=== PATIENT | female | born 1995 | race Caucasian/White ===

== ENCOUNTER 2016-10-14 11:18 | Outpatient (CLI) | payer MEDICAID | END 2016-10-14 11:19 | disposition home or self-care (01) | DX: M10.9 Gout, unspecified (principal) ==

== ENCOUNTER 2016-12-05 12:32 | Outpatient (CLI) | payer MEDICAID ==
[2016-12-05 17:54] LABS: HCT - HEMATOCRIT 41.3 % (37.0-47.0); HGB - HEMOGLOBIN 13.9 g/dL (12.0-16.0); MEAN CORPUSCULAR HEMOGLOBIN 33.6 pg (27.0-31.0); MEAN CORPUSCULAR HGB CONC 33.7 g/dL (32.0-36.0); MEAN CORPUSCULAR VOLUME 99.7 fL (81.0-99.0); MEAN PLATELET VOLUME 8.6 fL (7.9-10.8); RED BLOOD COUNT 4.14 10^6/uL (4.20-5.40); RED CELL DISTRIBUTION WIDTH 13.6 % (12.0-15.0)
== END 2016-12-05 12:33 | disposition home or self-care (01) ==
LOC: LAB.F 12:32
PROVIDERS: ATTEND Internal Medicine Nephrology
DX: N25.81 Secondary hyperparathyroidism of renal origin (principal); R80.9 Proteinuria, unspecified
CPT/HCPCS: 36415; 82570; 83970; 84100; 84156

== ENCOUNTER 2018-05-08 10:56 | Outpatient (CLI) | payer MEDICAID ==
[2018-05-08 17:41] LABS: BILIRUBIN,URINE NEGATIVE (NEGATIVE); GLUCOSE, URINE (UA) NEGATIVE (NEGATIVE); KETONES,URINE (UA) NEGATIVE (NEGATIVE); LEUKOCYTE ESTERASE, URINE NEGATIVE (NEGATIVE); NITRITE,URINE NEGATIVE (NEGATIVE); OCCULT BLOOD,URINE NEGATIVE (NEGATIVE); PROTEIN,URINE NEGATIVE (NEGATIVE); UROBILINOGEN,URINE 0.2 (NORMAL) E.U./dL (NORMAL)
[2018-05-08 17:54] LABS: BACTERIA,URINE None Seen /HPF (None Seen); CLARITY,URINE CLEAR (CLEAR); RBC,URINE None Seen /HPF (0-5); SQUAMOUS EPITHELIAL CELL,UR MANY Squamous (<= Few)
== END 2018-05-08 10:57 | disposition home or self-care (01) ==
LOC: LAB.R 10:56
PROVIDERS: ATTEND Nurse Practitioner Family
DX: N12 Tubulo-interstitial nephritis, not specified as acute or chronic (principal)
CPT/HCPCS: 81001; 87086

== ENCOUNTER 2018-12-22 15:58 | Emergency (ER) | payer MEDICAID ==
--- NOTE | 2018-12-22 16:37 | ED Physician Documentation ---
History of Present Illness - Stated complaint Stated Complaint: SUDHIR/COUGH/SINUS - Chief complaint Chief Complaint: General - History obtained from History obtained from: Patient, Family (mom) - History of Present Illness Timing: Other (23-year-old woman with history of Down syndrome, chronic leukopenia and one kidney presents with a week's worth of sore throat, productive cough with yellow sputum and sinus pain as well as feeling warm per the mom. Of note the mom says that she has vital signs that are always similar to this, review of her chart shows that she always has a somewhat low blood pres sure which is typical for a young woman but her pulse is usually in the 60s and 70s.) Review of Systems Constitutional: reports: Fever Ears: denies: Ear pain Nose: reports: Rhinorrhea / runny nose, Congestion, Sinus pressure / pain Throat: reports: Sore throat Respiratory: reports: Cough. denies: Dyspnea GI: denies: Vomiting, Diarrhea PD PAST MEDICAL HISTORY - Past Medical History Cardiovascular: Other Respiratory: None Endocrine/Autoimmune: None GI: None : Other HEENT: None Psych: Other Musculoskeletal: Gout, Fatigue Derm: None - Past Surgical History Past Surgical History: Yes - Present Medications Home Medications: Ambulatory Orders Medication Instructions Recorded Confirmed Polyethylene Glycol 3350 [Miralax] 4 tsp PO DAILY 10/14/17 12/15/18 Allopurinol 1.5 tab PO DAILY 10/27/18 12/15/18 - Allergies Allergies/Adverse Reactions: Allergies Allergy/AdvReac Type Severity Reaction Status Date / Time No Known Drug Allergies Allergy Verified 12/15/18 13:43 - Social History Does the pt smoke?: No Smoking Status: Never smoker Does the pt drink ETOH?: No Does the pt have substance abuse?: No PD ED PE NORMAL - Vitals Vital signs reviewed: Yes - General General: Alert and oriented X 3 - HEENT HEENT: PERRL, EOMI, Other (Down's feces, left TM normal. Unable to visualize the right TM due to cerumen. Tender over both maxillary sinuses with profuse sinus drainage. Visualized portions of the oropharynx are normal.) - Neck Neck: Supple, no meningeal sign, No bony TTP - Cardiac Cardiac: RRR, No murmur - Respiratory Respiratory: No respiratory distress, Clear bilaterally - Abdomen Abdomen: Soft, Non tender - Derm Derm: Normal color, Warm and dry, No rash - Extremities Extremities: No edema, No calf tenderness / cord - Neuro Neuro: Normal speech Results - Vitals Vitals: Vital Signs - 24 hr 12/22/18 16:03 Temperature 37.6 C H Heart Rate 96 Respiratory 18 Rate Blood Pressure 85/56 L O2 Saturation 95 Oxygen O2 Source Room air - Labs Labs: Laboratory Tests 12/22/18 12/22/18 12/22/18 16:54 16:54 16:54 WBC 7.6 RBC 4.18 L Hgb 13.4 Hct 42.5 MCV 101.7 H MCH 32.1 H MCHC 31.5 L RDW 14.0 Plt Count 196 MPV 10.5 Neut # (Auto) 6.8 H Lymph # (Auto) 0.3 L [place] # (Auto) 0.3 Eos # (Auto) 0.0 Baso # (Auto) 0.0 Absolute Nucleated RBC 0.00 Nucleated RBC % 0.0 Sodium 138 Potassium 4.3 Chloride 101 Carbon Dioxide 23 Anion Gap 14.0 H BUN 34 H Creatinine 1.8 H Estimated GFR (MDRD) 35 L Glucose 100 Lactic Acid 0.9 Calcium 9.0 PD MEDICAL DECISION MAKING - ED course ED course: Given her history and tachycardia labs were done which show a reassuring lactate and she is treated for sinusitis with Augmentin. Departure - Departure Disposition: 01 Home, Self Care Clinical Impression: Sinusitis Qualifiers: Sinusitis location: maxillary Chronicity: acute Recurrence: non-recurrent Qualified Code(s): J01.00 - Acute maxillary sinusitis, unspecified Condition: Good Record reviewed to determine appropriate education?: Yes Health Concerns: Sinusitis, with underlying leukopenia with improvement today likely due to her body fighting the infection. No evidence of sepsis. Plan of Treatment: Augmentin for 10 days, can also use [id number] remedies such as Mucinex and Sudafed. Care Goals: Improvement of infection Instructions: ED Sinusitis Abx Tx Comments: Follow-up with your doctor in a week, return for new or worsening symptoms. Drink plenty of fluids.
[2018-12-22 17:04] LABS: BASOPHILS % (AUTO) 0.5 %; EOSINOPHILS % (AUTO) 0.5 %; HGB - HEMOGLOBIN 13.4 g/dL (12.0-16.0); LYMPHOCYTES # (AUTO) 0.3 10^3/uL (1.5-3.5); LYMPHOCYTES % (AUTO) 4.4 %; MEAN CORPUSCULAR HEMOGLOBIN 32.1 pg (27.0-31.0); MEAN CORPUSCULAR HGB CONC 31.5 g/dL (32.0-36.0); MEAN CORPUSCULAR VOLUME 101.7 fL (81.0-99.0); MEAN PLATELET VOLUME 10.5 fL (7.9-10.8); MONOCYTES # (AUTO) 0.3 10^3/uL (0.0-1.0); NEUTROPHILS # (AUTO) 6.8 10^3/uL (1.5-6.6); NEUTROPHILS % (AUTO) 89.9 %; PLT - PLATELET COUNT 196 10^3/uL (130-450); RED BLOOD COUNT 4.18 10^6/uL (4.20-5.40); WHITE BLOOD COUNT 7.6 x10^3/uL (4.8-10.8)
[2018-12-22 17:07] LABS: CREATININE 1.8 mg/dL (0.4-1.0)
[2018-12-22] MEDS ORDERED: AMOX/CLAV 875 MG/125 MG TABLET PO STA (17:34)
[2018-12-22 17:51] VITALS: BP 84/54
== END 2018-12-22 17:55 | disposition home or self-care (01) ==
LOC: ED 15:58
DX: J01.00 Acute maxillary sinusitis, unspecified (principal)
CPT/HCPCS: 36415; 80048; 83605; 85025; 99283; A9270

== ENCOUNTER 2019-10-07 15:09 | Outpatient (CLI) | payer MEDICAID ==
[2019-10-07 16:28] LABS: BASOPHILS % (AUTO) 1.5 %; EOSINOPHILS % (AUTO) 1.1 %; HGB - HEMOGLOBIN 11.6 g/dL (12.0-16.0); LYMPHOCYTES % (AUTO) 28.9 %; MEAN CORPUSCULAR HEMOGLOBIN 32.7 pg (27.0-31.0); MEAN CORPUSCULAR HGB CONC 31.8 g/dL (32.0-36.0); MEAN CORPUSCULAR VOLUME 102.8 fL (81.0-99.0); MEAN PLATELET VOLUME 10.8 fL (7.9-10.8); MONOCYTES % (AUTO) 5.7 %; NEUTROPHILS % (AUTO) 62.4 %; PLT - PLATELET COUNT 240 10^3/uL (130-450); RED BLOOD COUNT 3.55 10^6/uL (4.20-5.40); RED CELL DISTRIBUTION WIDTH 15.3 % (12.0-15.0); WHITE BLOOD COUNT 2.6 x10^3/uL (4.8-10.8)
[2019-10-07 16:33] LABS: ABNORMAL LYMPHS % (MANUAL) 0 %
[2019-10-07 16:47] LABS: ALBUMIN/GLOBULIN RATIO 1.1 (1.0-2.2); BILIRUBIN,TOTAL 1.1 mg/dL (0.2-1.0); CALCIUM 9.6 mg/dL (8.5-10.3); CREATININE 1.5 mg/dL (0.4-1.0); TOTAL PROTEIN 7.6 g/dL (6.7-8.2)
[2019-10-07 16:51] LABS: BAND NEUTROPHILS % (MANUAL) 2 %; DIFFERENTIAL COMMENT MANUAL DIFFERENTIAL; LYMPHOCYTES # (MANUAL) 0.5 10^3/uL (1.5-3.5); LYMPHOCYTES % (MANUAL) 19 %; MONOCYTES # (MANUAL) 0.2 10^3/uL (0.0-1.0); PLATELET ESTIMATE, MANUAL NORMAL (130-450,000) (NORMAL); PLATELET MORPHOLOGY NORMAL APPEARANCE (NORMAL)
== END 2019-10-07 23:59 | disposition home or self-care (01) ==
LOC: LAB.WCP 15:09
PROVIDERS: ATTEND Registered Nurse
DX: N13.30 Unspecified hydronephrosis (principal); Z90.5 Acquired absence of kidney
CPT/HCPCS: 36415; 80053; 85025

== ENCOUNTER 2019-10-21 08:00 | Outpatient (CLI) | payer MEDICAID | END 2019-10-21 23:59 | disposition home or self-care (01) | LOC: LAB.R 08:00 | PROVIDERS: ATTEND Family Medicine | DX: N39.0 Urinary tract infection, site not specified (principal) | CPT/HCPCS: 87077; 87086; 87181 ==

== ENCOUNTER 2019-10-26 16:02 | Outpatient (CLI) | payer MEDICAID ==
--- NOTE | 2019-10-27 05:50 | Ultrasound Report ---
Reason: HYDRONEPHROSIS Procedure Date: 10/26/2019 Accession Number: [id number] / [id number] Procedure: US - Retroperitoneal CPT Code: Final Report FULL RESULT: EXAM: RENAL ULTRASOUND EXAM DATE: 10/26/2019 05:39 PM. CLINICAL HISTORY: HYDRONEPHROSIS. COMPARISON: ABDOMEN/PELVIS W/O 04/17/2014 4:18 PM. TECHNIQUE: Real-time scanning was performed with static images obtained. FINDINGS: Right Kidney: Status post right nephrectomy. Left Kidney: 11.9 x 8.1 x 9.7 cm. Moderate hydronephrosis without change post void. No mass or calculi evident. Bladder: Left ureteral jet seen. Mild lateral wall thickening. The prevoid bladder volume was 245 cc. The postvoid bladder volume was 24.6 cc. Other: None. IMPRESSION: 1. Moderate left hydronephrosis. 2. Right nephrectomy. 3. Mild bladder wall thickening. Correlate with urinalysis to exclude cystitis. 4. Small postvoid residual measuring 24.6 cc. RADIA
--- NOTE | 2019-10-27 05:57 | Ultrasound Report ---
Reason: HX OF OVARIAN CYST Procedure Date: 10/26/2019 Accession Number: [id number] / [id number] Procedure: US - Pelvic w/Transvaginal CPT Code: Final Report FULL RESULT: EXAM: PELVIC ULTRASOUND EXAM DATE: 10/26/2019 04:36 PM. CLINICAL HISTORY: History of ovarian cyst. Right ovary remains. Status post recent hysterectomy and left oophorectomy. COMPARISON: CT ABDOMEN/PELVIS W/O 04/17/2014 4:18 PM. TECHNIQUE: Realtime transabdominal pelvic scan performed to identify the uterus and adnexa with static image documentation. FINDINGS: Uterus: Status post hysterectomy. Right Ovary: Right ovary measures 3.2 x 1.9 x 3.5 cm, volume 10.7 cc. Right ovary contains a heterogeneous cystic structure measuring 2.3 x 1.3 x 1.6 cm, possibly involuting corpus luteum cyst or hemorrhagic cyst. No evidence of ovarian torsion. Left Ovary: Status post left oophorectomy. Free Fluid: None. Other: None. IMPRESSION: 1. Heterogeneous ovarian cyst measuring 2.3 cm, possibly involuting corpus luteum cyst or hemorrhagic cyst. Follow-up ultrasound in 6-10 weeks can be performed to ensure resolution. 2. Status post hysterectomy and left oophorectomy. 3. No free fluid. RADIA
== END 2019-10-26 16:03 | disposition home or self-care (01) ==
LOC: DI 16:02
PROVIDERS: ATTEND Family Medicine
DX: N13.30 Unspecified hydronephrosis (principal); N32.89 Other specified disorders of bladder; N83.201 Unspecified ovarian cyst, right side; Z90.5 Acquired absence of kidney; Z90.710 Acquired absence of both cervix and uterus; Z90.721 Acquired absence of ovaries, unilateral
CPT/HCPCS: 76770; 76830; 76856

== ENCOUNTER 2019-12-28 05:18 | Emergency (ER) | payer MEDICAID ==
--- NOTE | 2019-12-28 05:35 | ED Physician Documentation ---
<Sean Jain - Last Filed: 12/28/19 18:52> PD HPI FEMALE - Stated complaint Stated Complaint: BACK PX/FEM - Chief complaint Chief Complaint: Back Pain PD PAST MEDICAL HISTORY - Past Medical History Neuro: Other (Down Syndrome) : Other (frequent infections, right nephrectomy reflux with stent in place on left) - Past Surgical History General: Other (nephrectomy) - Present Medications Home Medications: Ambulatory Orders Medication Instructions Recorded Confirmed Polyethylene Glycol 3350 [Miralax] 4 tsp PO DAILY 10/14/17 12/28/19 allopurinoL [Allopurinol] 1.5 tab PO DAILY 10/27/18 12/28/19 Cefdinir 300 mg PO BID #14 capsule 12/28/19 Ondansetron Odt [Zofran] 4 mg TL Q6H PRN #10 tablet 12/28/19 - Allergies Allergies/Adverse Reactions: Allergies Allergy/AdvReac Type Severity Reaction Status Date / Time Sulfa (Sulfonamide AdvReac Unknown Verified 12/28/19 05:39 Antibiotics) - Living Situation Living Situation: reports: With family Living Arrangement: reports: At home - Family History Family history: reports: Non contributory PD ED PE NORMAL - Vitals Vital signs reviewed: Yes (febrile tachy and with low blood pressure ) - General General: No acute distress, Well developed/nourished - HEENT HEENT: Atraumatic, PERRL, EOMI, Dentition benign, Other (dry mucous membranes ) - Neck Neck: Supple, no meningeal sign - Cardiac Cardiac: RRR, Other (1/6 holosystolic murmer at LSB) - Respiratory Respiratory: No respiratory distress, Clear bilaterally - Abdomen Abdomen: Soft, Non distended, Other (mild left upper quadrant tenderness to bimanual palpation of the left kidney) - Back Back: No spinal TTP, Other (left CVA tenderness is mild without garding but with reported tenderness. ) - Derm Derm: Normal color, Warm and dry, No rash - Extremities Extremities: No deformity, No edema, No calf tenderness / cord - Neuro Neuro: heel cover splitter 2-12 intact, No motor deficit, No sensory deficit, Normal speech Eye Opening: Spontaneous Motor: Obeys Commands Verbal: Oriented GCS Score: 15 - Psych Psych: Normal mood, Normal affect PD MEDICAL DECISION MAKING - ED course Complexity details: reviewed old records, reviewed results, re-evaluated patient, considered differential, d/w patient, d/w family, d/w pre owned sales consultant (The case was discussed with the patient's urologist Dr. Be and she agrees with current management and she will follow up. ) ED course: 24-year-old female with trisomy 21 Down syndrome and frequent urinary tract infections has had a recent stent placed in the left ureter she has a history of frequent urinary tract infections and Imtiaz. She has been complaining of pain beginning yesterday afternoon and her sister indicates that when she begins to cry and be in pain this is usually the issue. The patient herself indicates that her left kidney is painful. She has had some nausea and vomiting associated with this and a fever. Urinalysis is remarkable for some trace leukocyte Estrace. The urinalysis does make grade for culture. She is administered IV rocephin and we will place her on cefdinir. Tylenol for fever and pain and zofran for nausea. Departure - Departure Disposition: 01 Home, Self Care Clinical Impression: UTI (urinary tract infection) Qualifiers: Urinary tract infection type: acute pyelonephritis Qualified Code(s): N10 - Acute pyelonephritis Condition: Stable Instructions: ED Kidney Infec Female Follow-Up: Javon Adams DO [Primary Care Provider] - Prescriptions: Cefdinir 300 mg PO BID #14 capsule Ondansetron Odt [Zofran] 4 mg TL Q6H PRN #10 tablet PRN Reason: Nausea / Vomiting Discharge Date/Time: 12/28/19 10:01 <Forrest Tran - Last Filed: 12/29/19 19:45> PD HPI FEMALE - History obtained from History obtained from: Patient, Family (sister (in ED at bedside)) - History of Present Illness Timing - onset: Yesterday Timing - details: Gradual onset Associated symptoms: Fever (in ED but patient/family were not aware of any fevers at home) 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 Per patient's sister, patient has been "crying a lot all day" during the day yesterday, which tends to correlate with patient having pain/discomfort. Patient has had episodic vomiting since yesterday. Patient's sister says patient has had recurrent "kidney infections" including recently, but unsure when patient was most recently on an antibiotic. Patient has had right nephrectomy (does not know reason but sounds like this was a distant surgery). Sister says patient had left ureteral stent placed recently (within past several weeks/possibly few months ago). Review of Systems Constitutional: reports: Fever PD PAST MEDICAL HISTORY - Past Medical History Cardiovascular: Other Respiratory: None Neuro: None Endocrine/Autoimmune: None GI: None CASTING ASSOCIATE: None : Other HEENT: None Psych: Other Musculoskeletal: Gout, Fatigue Derm: None - Past Surgical History Past Surgical History: Yes - Social History Does the pt smoke?: No Smoking Status: Never smoker Does the pt drink ETOH?: No Does the pt have substance abuse?: No - Immunizations Immunizations are current?: Yes - POLST Patient has POLST: No PD ED PE NORMAL - Vitals Vital signs reviewed: Yes - General General: No acute distress, Well developed/nourished - HEENT HEENT: Pharynx benign, Other (tacky/pasty mucous membranes) - Neck Neck: Supple, no meningeal sign - Cardiac Cardiac: RRR, No murmur - Respiratory Respiratory: No respiratory distress, Clear bilaterally - Abdomen Abdomen: Soft, Non tender, Non distended - Back Back: No CVA TTP - Derm Derm: Normal color, Warm and dry Results - Vitals Vitals: Oxygen O2 Source Room air - Labs Labs: Microbiology 12/28/19 06:10 Urine Culture - Preliminary Urine,Clean Catch Laboratory Tests 12/28/19 12/28/19 12/28/19 06:00 06:00 06:00 WBC 6.1 RBC 3.38 L Hgb 11.1 L Hct 33.9 L MCV 100.3 H MCH 32.8 H MCHC 32.7 RDW 14.2 Plt Count 97 L MPV 10.5 Neut # (Auto) 5.5 Lymph # (Auto) 0.2 L [place] # (Auto) 0.3 Eos # (Auto) 0.0 Baso # (Auto) 0.0 Absolute Nucleated RBC 0.00 Nucleated RBC % 0.0 Sodium 137 Potassium 4.8 Chloride 104 Carbon Dioxide 25 Anion Gap 8.0 BUN 46 H Creatinine 2.0 H Estimated GFR (MDRD) 30 L Glucose 100 Lactic Acid 0.9 Calcium 8.8 Total Bilirubin 0.6 AST 12 ALT 11 Alkaline Phosphatase 44 Total Protein 6.4 L Albumin 3.6 Globulin 2.8 Albumin/Globulin Ratio 1.3 Lipase 22 Urine Color Urine Clarity Urine pH Ur Specific [place] Urine Protein Urine Glucose (UA) Urine Ketones Urine Occult Blood Urine Nitrite Urine Bilirubin Urine Urobilinogen Ur Leukocyte Esterase Urine RBC Urine WBC Ur Squamous Epith Cells Urine Bacteria Ur Microscopic Review Urine Culture Comments 12/28/19 06:10 WBC RBC Hgb Hct MCV MCH MCHC RDW Plt Count MPV Neut # (Auto) Lymph # (Auto) [place] # (Auto) Eos # (Auto) Baso # (Auto) Absolute Nucleated RBC Nucleated RBC % Sodium Potassium Chloride Carbon Dioxide Anion Gap BUN Creatinine Estimated GFR (MDRD) Glucose Lactic Acid Calcium Total Bilirubin AST ALT Alkaline Phosphatase Total Protein Albumin Globulin Albumin/Globulin Ratio Lipase Urine Color YELLOW Urine Clarity CLEAR Urine pH 6.0 Ur Specific [place] 1.015 Urine Protein 100 H Urine Glucose (UA) NEGATIVE Urine Ketones NEGATIVE Urine Occult Blood MODERATE H Urine Nitrite NEGATIVE Urine Bilirubin NEGATIVE Urine Urobilinogen 0.2 (NORMAL) Ur Leukocyte Esterase TRACE H Urine RBC 6-10 H Urine WBC 4-5 Ur Squamous Epith Cells FEW Squamous Urine Bacteria Few Ur Microscopic Review INDICATED Urine Culture Comments INDICATED PD MEDICAL DECISION MAKING - ED course Complexity details: reviewed old records (charts from [facility] / [facility] faxed and reviewed, indicate left ureteral stent placement 12/06/2019), considered differential, d/w patient, d/w family
[2019-12-28] MEDS ORDERED: SODIUM CHLORIDE 0.9% 1,000 ML IV STA (05:55)
[2019-12-28] MEDS ORDERED: MORPHINE 2 MG/ML CARPUJECT IVP STA (05:55)
[2019-12-28] MEDS ORDERED: ACETAMINOPHEN 325 MG TABLET PO STA (05:55)
[2019-12-28] MEDS ORDERED: ONDANSETRON 4 MG/2 ML VIAL ONE (06:09)
[2019-12-28] MEDS ORDERED: ONDANSETRON 4 MG/2 ML VIAL IVP STA (06:10)
[2019-12-28 06:17] LABS: BASOPHILS % (AUTO) 0.5 %; EOSINOPHILS % (AUTO) 0.3 %; HGB - HEMOGLOBIN 11.1 g/dL (12.0-16.0); LYMPHOCYTES # (AUTO) 0.2 10^3/uL (1.5-3.5); LYMPHOCYTES % (AUTO) 3.3 %; MEAN CORPUSCULAR HEMOGLOBIN 32.8 pg (27.0-31.0); MEAN CORPUSCULAR HGB CONC 32.7 g/dL (32.0-36.0); MEAN CORPUSCULAR VOLUME 100.3 fL (81.0-99.0); MEAN PLATELET VOLUME 10.5 fL (7.9-10.8); MONOCYTES # (AUTO) 0.3 10^3/uL (0.0-1.0); MONOCYTES % (AUTO) 4.5 %; NEUTROPHILS # (AUTO) 5.5 10^3/uL (1.5-6.6); NEUTROPHILS % (AUTO) 91.1 %; PLT - PLATELET COUNT 97 10^3/uL (130-450); RED BLOOD COUNT 3.38 10^6/uL (4.20-5.40); RED CELL DISTRIBUTION WIDTH 14.2 % (12.0-15.0); WHITE BLOOD COUNT 6.1 x10^3/uL (4.8-10.8)
[2019-12-28 06:31] LABS: ALBUMIN 3.6 g/dL (3.2-5.5); ALBUMIN/GLOBULIN RATIO 1.3 (1.0-2.2); BILIRUBIN,TOTAL 0.6 mg/dL (0.2-1.0); CALCIUM 8.8 mg/dL (8.5-10.3); TOTAL PROTEIN 6.4 g/dL (6.7-8.2)
[2019-12-28 07:20] LABS: BILIRUBIN,URINE NEGATIVE (NEGATIVE); GLUCOSE, URINE (UA) NEGATIVE (NEGATIVE); KETONES,URINE (UA) NEGATIVE (NEGATIVE); LEUKOCYTE ESTERASE, URINE TRACE (NEGATIVE); NITRITE,URINE NEGATIVE (NEGATIVE); OCCULT BLOOD,URINE MODERATE (NEGATIVE); PROTEIN,URINE 100 mg/dL (NEGATIVE); UROBILINOGEN,URINE 0.2 (NORMAL) E.U./dL (NORMAL)
[2019-12-28 07:29] LABS: CLARITY,URINE CLEAR (CLEAR)
[2019-12-28 07:41] LABS: BACTERIA,URINE Few /HPF (None Seen); SQUAMOUS EPITHELIAL CELL,UR FEW Squamous (<= Few)
[2019-12-28] MEDS ORDERED: cefTRIAXone 1 GM in SODIUM CHLORIDE 0.9% MINIBAG 100 ML IV STA (08:13)
[2019-12-28 10:01] VITALS: BP 102/60
== END 2019-12-28 10:01 | disposition home or self-care (01) ==
LOC: ED 05:18
DX: N10 Acute pyelonephritis (principal); R11.2 Nausea with vomiting, unspecified; Q90.9 Down syndrome, unspecified; R01.1 Cardiac murmur, unspecified; Z90.5 Acquired absence of kidney; Z96.0 Presence of urogenital implants
CPT/HCPCS: 36415; 80053; 81001; 83605; 83690; 85025; 87077; 87086; 87181; 96361; 96365; 96375; 99283; 99284; A9270; 81003

== ENCOUNTER 2019-12-30 22:39 | Emergency (ER) | payer MEDICAID ==
[2019-12-30 22:50] VITALS: BP 105/58
== END 2019-12-31 00:17 | disposition left against medical advice (07) ==
LOC: ED 22:39
DX: Z53.21 Procedure and treatment not carried out due to patient leaving prior to being seen by health care provider (principal)

== ENCOUNTER 2020-02-07 10:29 | Outpatient (CLI) | payer MEDICAID ==
[2020-02-07 16:01] LABS: CALCIUM 9.5 mg/dL (8.5-10.3); PHOSPHORUS 5.2 mg/dL (2.5-4.6)
== END 2020-02-07 10:30 | disposition home or self-care (01) ==
LOC: LAB.S 10:29
PROVIDERS: ATTEND Internal Medicine Nephrology
DX: N39.0 Urinary tract infection, site not specified (principal); N13.30 Unspecified hydronephrosis; N18.3 Chronic kidney disease, stage 3 (moderate)
CPT/HCPCS: 36415; 80069

== ENCOUNTER 2020-03-01 07:54 | Outpatient (CLI) | payer MEDICAID | END 2020-03-01 07:55 | disposition short-term general hospital (02) | LOC: EMS 07:54 | PROVIDERS: ATTEND Surgery | DX: R55 Syncope and collapse (principal) | CPT/HCPCS: A0425; A0427 ==

== ENCOUNTER 2020-03-09 08:00 | Outpatient (CLI) | payer MEDICAID ==
[2020-03-09 20:34] LABS: BASOPHILS % (AUTO) 0.8 %; EOSINOPHILS # (AUTO) 0.1 10^3/uL (0.0-0.7); EOSINOPHILS % (AUTO) 2.5 %; LYMPHOCYTES # (AUTO) 0.8 10^3/uL (1.5-3.5); LYMPHOCYTES % (AUTO) 22.3 %; MEAN CORPUSCULAR HEMOGLOBIN 34.2 pg (27.0-31.0); MEAN CORPUSCULAR HGB CONC 33.1 g/dL (32.0-36.0); MEAN CORPUSCULAR VOLUME 103.1 fL (81.0-99.0); MEAN PLATELET VOLUME 11.5 fL (7.9-10.8); MONOCYTES # (AUTO) 0.2 10^3/uL (0.0-1.0); MONOCYTES % (AUTO) 6.2 %; NEUTROPHILS # (AUTO) 2.4 10^3/uL (1.5-6.6); NEUTROPHILS % (AUTO) 67.6 %; PLT - PLATELET COUNT 223 10^3/uL (130-450); RED BLOOD COUNT 3.22 10^6/uL (4.20-5.40); RED CELL DISTRIBUTION WIDTH 15.2 % (12.0-15.0); WHITE BLOOD COUNT 3.5 x10^3/uL (4.8-10.8)
[2020-03-09 20:42] LABS: CREATININE 1.8 mg/dL (0.4-1.0)
== END 2020-03-09 23:59 | disposition home or self-care (01) ==
LOC: LAB.R 08:00
PROVIDERS: ATTEND Internal Medicine
DX: N39.0 Urinary tract infection, site not specified (principal)
CPT/HCPCS: 80048; 85025

== ENCOUNTER 2020-06-05 07:00 | Outpatient (CLI) | payer MEDICAID ==
[2020-06-05 20:21] LABS: BILIRUBIN,URINE NEGATIVE (NEGATIVE); GLUCOSE, URINE (UA) NEGATIVE (NEGATIVE); KETONES,URINE (UA) NEGATIVE (NEGATIVE); LEUKOCYTE ESTERASE, URINE SMALL (NEGATIVE); NITRITE,URINE POSITIVE (NEGATIVE); OCCULT BLOOD,URINE NEGATIVE (NEGATIVE); PH,URINE 8.5 PH (5.0-7.5); PROTEIN,URINE NEGATIVE (NEGATIVE); UROBILINOGEN,URINE 0.2 (NORMAL) E.U./dL (NORMAL)
[2020-06-05 20:33] LABS: CLARITY,URINE HAZY (CLEAR)
[2020-06-05 20:34] LABS: AMORPHOUS SEDIMENT,UR Rare /LPF; BACTERIA,URINE Few /HPF (None Seen); RBC,URINE None Seen /HPF (0-5); SQUAMOUS EPITHELIAL CELL,UR RARE Squamous (<= Few)
== END 2020-06-05 23:59 | disposition home or self-care (01) ==
LOC: LAB 07:00
PROVIDERS: ATTEND Registered Nurse
DX: N39.0 Urinary tract infection, site not specified (principal)
CPT/HCPCS: 81001; 81003; 87077; 87086; 87181

== ENCOUNTER 2021-01-02 14:19 | Outpatient (CLI) | payer MEDICAID ==
[2021-01-02 17:29] LABS: CALCIUM 9.2 mg/dL (8.5-10.3); CREATININE 2.2 mg/dL (0.4-1.0); POTASSIUM 4.3 mmol/L (3.5-5.0)
== END 2021-01-02 14:20 | disposition home or self-care (01) ==
LOC: LAB.S 14:19
DX: N13.30 Unspecified hydronephrosis (principal)
CPT/HCPCS: 36415; 80048

== ENCOUNTER 2021-01-05 14:25 | Outpatient (CLI) | payer MEDICAID ==
[2021-01-05 14:28] LABS: BILIRUBIN,URINE NEGATIVE (NEGATIVE); GLUCOSE, URINE (UA) NEGATIVE (NEGATIVE); KETONES,URINE (UA) NEGATIVE (NEGATIVE); LEUKOCYTE ESTERASE, URINE NEGATIVE (NEGATIVE); NITRITE,URINE NEGATIVE (NEGATIVE); OCCULT BLOOD,URINE NEGATIVE (NEGATIVE); PROTEIN,URINE NEGATIVE (NEGATIVE); UROBILINOGEN,URINE 0.2 (NORMAL) E.U./dL (NORMAL)
[2021-01-05 14:38] LABS: BACTERIA,URINE None Seen /HPF (None Seen); CLARITY,URINE CLEAR (CLEAR); RBC,URINE 0-5 /HPF (0-5); SQUAMOUS EPITHELIAL CELL,UR RARE Squamous (<= Few); WBC,URINE 0-3 /HPF (0-5)
== END 2021-01-05 14:26 | disposition home or self-care (01) ==
LOC: LAB.S 14:25
PROVIDERS: ATTEND Registered Nurse
DX: N39.0 Urinary tract infection, site not specified (principal)
CPT/HCPCS: 81001; 87086

== ENCOUNTER 2023-06-22 02:47 | Emergency (ER) | payer MEDICARE, MEDICAID ==
[2023-06-22 04:10] LABS: BASOPHILS % (AUTO) 0.4 %; HCT - HEMATOCRIT 35.6 % (37.0-47.0); HGB - HEMOGLOBIN 11.9 g/dL (12.0-16.0); LYMPHOCYTES # (AUTO) 0.3 10^3/uL (1.5-3.5); LYMPHOCYTES % (AUTO) 3.5 %; MEAN CORPUSCULAR HEMOGLOBIN 33.5 pg (27.0-31.0); MEAN CORPUSCULAR HGB CONC 33.4 g/dL (32.0-36.0); MEAN CORPUSCULAR VOLUME 100.3 fL (81.0-99.0); MEAN PLATELET VOLUME 9.7 fL (7.9-10.8); MONOCYTES # (AUTO) 0.2 10^3/uL (0.0-1.0); MONOCYTES % (AUTO) 3.1 %; NEUTROPHILS # (AUTO) 6.8 10^3/uL (1.5-6.6); NEUTROPHILS % (AUTO) 92.9 %; PLT - PLATELET COUNT 119 10^3/uL (130-450); RED BLOOD COUNT 3.55 10^6/uL (4.20-5.40); RED CELL DISTRIBUTION WIDTH 14.2 % (12.0-15.0); WHITE BLOOD COUNT 7.3 x10^3/uL (4.8-10.8)
[2023-06-22 04:57] LABS: ALBUMIN 4.1 g/dL (3.2-5.5); ALBUMIN/GLOBULIN RATIO 1.4 (1.0-2.2); BILIRUBIN,TOTAL 0.4 mg/dL (0.2-1.0); CALCIUM 9.4 mg/dL (8.5-10.3); CREATININE 2.5 mg/dL (0.6-1.3); POTASSIUM 4.2 mmol/L (3.5-4.5)
--- NOTE | 2023-06-22 05:00 | ED Physician Documentation ---
History of Present Illness - Stated complaint Stated Complaint: VOMITING/FEVER - Chief complaint Chief Complaint: General - History obtained from History obtained from: Family - Additonal information Additional information: Patient's PMHx includes Downs Syndrome, solitary kidney. HPI from parents who are in ED at patient's bedside. Chief concern is fever to a Tmax of 101.5 with vomiting since approximately 1:30 AM this morning. They did not administer any medications for fever due to the vomiting. Parents say the patient has also been complaining of back pain but has had this pain since having ureteral stent placed approximately 3 months ago. Parents say that 3 months ago, patient had surgery (in [place]) to relieve obstruction of the left kidney with placement of left-sided ureteral stent placed along with a Sanchez catheter. Sanchez catheter has since been removed, but the stent has been removed and then replaced twice due to worsening creatinine subsequent to stent removal. Review of Systems Constitutional: reports: Fever Respiratory: denies: Dyspnea, Cough GI: reports: Vomiting. denies: Abdominal Pain Skin: denies: Rash Musculoskeletal: reports: Back pain PD PAST MEDICAL HISTORY - Past Medical History Past Medical History: Yes Cardiovascular: Other Respiratory: None Neuro: None Endocrine/Autoimmune: None GI: None HAND SCRAPER: None : Renal insuffiency, Other HEENT: None Psych: Other Musculoskeletal: Gout, Fatigue Derm: None - Past Surgical History Past Surgical History: Yes General: Other /HAND SCRAPER: Other - Present Medications Home Medications: Ambulatory Orders Medication Instructions Recorded Confirmed Polyethylene Glycol 3350 [Miralax] 4 tsp PO DAILY 10/14/17 12/28/19 allopurinoL [Allopurinol] 1.5 tab PO DAILY 10/27/18 12/28/19 Cefdinir 300 mg PO BID #14 capsule 12/28/19 Ondansetron Odt [Zofran] 4 mg TL Q6H PRN #10 tablet 12/28/19 - Allergies Allergies/Adverse Reactions: Allergies Allergy/AdvReac Type Severity Reaction Status Date / Time Sulfa (Sulfonamide AdvReac Unknown Verified 06/22/23 03:03 Antibiotics) - Social History Does the pt smoke?: No Smoking Status: Never smoker Does the pt drink ETOH?: No Does the pt have substance abuse?: No - Immunizations Immunizations are current?: Yes - POLST Patient has POLST: No PD ED PE NORMAL - Vitals Vital signs reviewed: Yes - General General: No acute distress, Well developed/nourished, Other (sleeping, awakens to verbal with gentle tactile) - Neck Neck: Supple, no meningeal sign - Cardiac Cardiac: RRR - Respiratory Respiratory: No respiratory distress, Clear bilaterally - Abdomen Abdomen: Normal bowel sounds, Soft, Non tender, Non distended - Derm Derm: Normal color, Warm and dry PD ED PE EXPANDED - Cardiac Cardiac: Murmur Present (2/6 JENNI left 2nd ICS), S4 Results - Vitals Vitals: Vital Signs - 24 hr 06/22/23 06/22/23 06/22/23 02:56 03:03 05:56 Temperature 37.5 C 37.5 C 37.3 C Heart Rate 95 95 84 Respiratory 16 16 17 Rate Blood Pressure 117/58 L 117/58 L 101/50 L O2 Saturation 98 98 93 06/22/23 07:00 Temperature Heart Rate 84 Respiratory 15 Rate Blood Pressure 98/52 L O2 Saturation 96 Oxygen O2 Source Room air - Labs Labs: Laboratory Tests 06/22/23 06/22/23 06/22/23 04:00 04:00 04:19 WBC 7.3 RBC 3.55 L Hgb 11.9 L Hct 35.6 L MCV 100.3 H MCH 33.5 H MCHC 33.4 RDW 14.2 Plt Count 119 L MPV 9.7 Neut # (Auto) 6.8 H Lymph # (Auto) 0.3 L [place] # (Auto) 0.2 Eos # (Auto) 0.0 Baso # (Auto) 0.0 Absolute Nucleated RBC 0.00 Nucleated RBC % 0.0 Sodium 138 Potassium 4.2 Chloride 104 Carbon Dioxide 24 Anion Gap 10.0 BUN 63 H Creatinine 2.5 H Estimated GFR (MDRD) 23 L Glucose 125 H Calcium 9.4 Total Bilirubin 0.4 AST 13 ALT 10 Alkaline Phosphatase 41 L Total Protein 7.0 Albumin 4.1 Globulin 2.9 Albumin/Globulin Ratio 1.4 Lipase 16 Urine Color YELLOW Urine Clarity CLEAR Urine pH 6.0 Ur Specific [place] 1.010 Urine Protein TRACE Urine Glucose (UA) NEGATIVE Urine Ketones NEGATIVE Urine Occult Blood MODERATE H Urine Nitrite NEGATIVE Urine Bilirubin NEGATIVE Urine Urobilinogen 0.2 (NORMAL) Ur Leukocyte Esterase MODERATE H Urine RBC 11-25 H Urine WBC 11-25 H Ur Squamous Epith Cells MANY Squamous H Urine Bacteria Moderate H Ur Microscopic Review INDICATED Urine Culture Comments NOT INDICATED Urine HCG, Qual NEGATIVE Nasal Adenovirus (PCR) Nasal B. parapertussis DNA (PCR) Nasal Coronavir 229E PCR Nasal Coronavir HKU1 PCR Nasal Coronavir NL63 PCR Nasal Coronavir OC43 PCR Nasal Enterovir/Rhinovir PCR Nasal Influenza B PCR Nasal Influenza A PCR Nasal Parainfluen 1 PCR Nasal Parainfluen 2 PCR Nasal Parainfluen 3 PCR Nasal Parainfluen 4 PCR Nasal RSV (PCR) Nasal B.pertussis DNA PCR Nasal C.pneumoniae (PCR) [place] Human Metapneumo PCR Nasal M.pneumoniae (PCR) Nasal SARS-CoV-2 (PCR) 06/22/23 05:36 WBC RBC Hgb Hct MCV MCH MCHC RDW Plt Count MPV Neut # (Auto) Lymph # (Auto) [place] # (Auto) Eos # (Auto) Baso # (Auto) Absolute Nucleated RBC Nucleated RBC % Sodium Potassium Chloride Carbon Dioxide Anion Gap BUN Creatinine Estimated GFR (MDRD) Glucose Calcium Total Bilirubin AST ALT Alkaline Phosphatase Total Protein Albumin Globulin Albumin/Globulin Ratio Lipase Urine Color Urine Clarity Urine pH Ur Specific [place] Urine Protein Urine Glucose (UA) Urine Ketones Urine Occult Blood Urine Nitrite Urine Bilirubin Urine Urobilinogen Ur Leukocyte Esterase Urine RBC Urine WBC Ur Squamous Epith Cells Urine Bacteria Ur Microscopic Review Urine Culture Comments Urine HCG, Qual Nasal Adenovirus (PCR) NOT DETECTED Nasal B. parapertussis DNA (PCR) NOT DETECTED Nasal Coronavir 229E PCR NOT DETECTED Nasal Coronavir HKU1 PCR NOT DETECTED Nasal Coronavir NL63 PCR NOT DETECTED Nasal Coronavir OC43 PCR NOT DETECTED Nasal Enterovir/Rhinovir PCR NOT DETECTED Nasal Influenza B PCR NOT DETECTED Nasal Influenza A PCR NOT DETECTED Nasal Parainfluen 1 PCR NOT DETECTED Nasal Parainfluen 2 PCR NOT DETECTED Nasal Parainfluen 3 PCR NOT DETECTED Nasal Parainfluen 4 PCR NOT DETECTED Nasal RSV (PCR) NOT DETECTED Nasal B.pertussis DNA PCR NOT DETECTED Nasal C.pneumoniae (PCR) NOT DETECTED [place] Human Metapneumo PCR NOT DETECTED Nasal M.pneumoniae (PCR) NOT DETECTED Nasal SARS-CoV-2 (PCR) NOT DETECTED PD Medical Decision Making - ED course Complexity details: considered differential, d/w family ED course: WBC 7.3; parents show me previous/recent results on patient's MyChart indicating her WBC is typically low (2-3 range). BUN 63, creatinine 2.5. On [facility] records, I see previous creatinine ranges from 1.8-2.3 over [id number]. Parents say patient's creatinine was 2.3 on 06/17/23. UA and respiratory PCR results pending at end of my shift. Care of patient turned over to oncoming ED physician (Dr. Carias). Departure - Departure Forms: PCP List
[2023-06-22 06:06] LABS: BILIRUBIN,URINE NEGATIVE (NEGATIVE); GLUCOSE, URINE (UA) NEGATIVE (NEGATIVE); KETONES,URINE (UA) NEGATIVE (NEGATIVE); LEUKOCYTE ESTERASE, URINE MODERATE (NEGATIVE); NITRITE,URINE NEGATIVE (NEGATIVE); OCCULT BLOOD,URINE MODERATE (NEGATIVE); PROTEIN,URINE TRACE mg/dL (NEGATIVE); UROBILINOGEN,URINE 0.2 (NORMAL) E.U./dL (NORMAL)
[2023-06-22 06:43] LABS: CLARITY,URINE CLEAR (CLEAR); HCG UR QUAL NEGATIVE
[2023-06-22 06:44] LABS: BACTERIA,URINE Moderate /HPF (None Seen); SQUAMOUS EPITHELIAL CELL,UR MANY Squamous (<= Few)
[2023-06-22 07:28] LABS: B. PARAPERTUSSIS- RESP PCR PAN NOT DETECTED; B. PERTUSSIS- RESP PCR PANEL NOT DETECTED; C. PNEUMONIAE- RESP PCR PANEL NOT DETECTED; CORONAVIRUS 229E-RESP PCR NOT DETECTED; CORONAVIRUS HKU1-RESP PCR NOT DETECTED; CORONAVIRUS NL63-RESP PCR NOT DETECTED; CORONAVIRUS OC43-RESP PCR NOT DETECTED; HUMAN METAPNEUMOVIRUS NOT DETECTED; INFLUENZA A- RESP PCR PANEL NOT DETECTED; INFLUENZA B - RESP PCR PANEL NOT DETECTED; M. PNEUMONIAE- RESP PCR PANEL NOT DETECTED; PARAINFLUENZA VIRUS 1 NOT DETECTED; PARAINFLUENZA VIRUS 2 NOT DETECTED; PARAINFLUENZA VIRUS 3 NOT DETECTED; PARAINFLUENZA VIRUS 4 NOT DETECTED; RHINOVIRUS/ENTEROVIRUS NOT DETECTED; RSV- RESP PCR PANEL NOT DETECTED; SARS-CoV-2 -RESP PCR PANEL NOT DETECTED
[2023-06-22] MEDS ORDERED: ONDANSETRON 4 MG/2 ML VIAL IVP STA (07:32)
[2023-06-22] MEDS ORDERED: CIPROFLOXACIN 400 MG/200 ML 400 MG/200 ML BAG IV STA (07:48)
--- NOTE | 2023-06-22 08:22 | CT Report ---
PROCEDURE: ABDOMEN/PELVIS WO INDICATIONS: Evaluation, UTI, single kidney stent pain TECHNIQUE: A CT scan of the abdomen and pelvis was performed without the use of intravenous contrast. Images we re recorded and evaluated at appropriate window settings. Reformats: coronal and sagittal. For radiat ion dose reduction, the following was used: automated exposure control, adjustment of mA and/or kV ac cording to patient size. COMPARISON: 04/17/2014 FINDINGS: Image quality: Diagnostic Lower chest: No dense lower lung consolidation. No pleural effusions. Partially seen SVC device. Liver: No gross abnormality on this noncontrast imaging. Gallbladder and biliary system: Unremarkable, nondilated Pancreas: Unremarkable Spleen: Nonenlarged Adrenals: No nodules Kidneys: Right nephrectomy. Left ureteral stent appears to be in appropriate position. Mild to modera te left pelvocaliectasis and mild ureter dilation. Vessels and lymph nodes: No pathologic lymph nodes by size criteria. No abdominal aortic aneurysm. Bowel and peritoneum: No evidence of small bowel obstruction. Moderate to large fecal loading, includ ing a rectal stool ball. No pathologic free fluid. Body wall: Tiny fat-containing umbilical hernia. Pelvis: Reproductive organs not well evaluated on this study. The uterus appears absent. The bladder is thick walled. In the right pelvis, there is a cystic structure measuring 6.2 x 3.9 cm. Bones: No acute or suspicious osseous finding. Partially seen sternotomy wires. IMPRESSION: Thick walled bladder compatible with reported UTI history. Left ureteral stent appears to be in appro priate position. However, there is mild to moderate left pelvocaliectasis and mild ureter dilation. Consider urologic follow-up for the above. Right pelvic cystic structure measuring up to 6.2 cm. Consider follow-up with MRI. This may be adnexa l/ovarian. Other findings as above. Reviewed by: Benji Kwon MD on 06/22/2023 8:21 AM [facility] Approved by: Benji Kwon MD on 06/22/2023 8:21 AM PST Station ID: [id number]
[2023-06-22] MEDS ORDERED: ACETAMINOPHEN 1,000 MG/100 ML 1,000 MG/100 ML BAG IV ONE (09:58)
[2023-06-22] MEDS ORDERED: METOCLOPRAMIDE 10 MG/2 ML VIAL IVP STA (09:58)
[2023-06-22 11:21] VITALS: BP 110/80
[2023-06-22] MEDS ORDERED: CIPROFLOXACIN 250 MG TABLET PO STA (11:34)
--- NOTE | 2023-06-22 11:45 | ED Physician Documentation ---
Departure - Departure Disposition: 01 Home, Self Care Clinical Impression: Lower urinary tract infection Chronic renal insufficiency Qualifiers: Chronic kidney disease stage: unspecified stage Qualified Code(s): N18.9 - Chronic kidney disease, unspecified Prescriptions: Ciprofloxacin HCl [Cipro] 250 mg PO DAILY #3 tab Metoclopramide [Reglan] 10 mg PO Q6H PRN #30 tablet PRN Reason: Nausea / Vomiting Comments: Thank you for allowing us to care for your daughter today at [facility]. Today in the emergency department she was evaluated for any possible dangerous or life-threatening medical condition. She was found to have signs of infection in her urine. Overall her blood work was reassuring. Her kidney function is at its baseline at this time. I dis cussed her care directly with Dr. Rincon, [facility] [facility]. At this time I would like her to begin a short course of an oral antibiotic. I have also written prescription for medication for nausea. These were sent to [facility] in [place]. PleaseEncouraged her to stay well-hydrated with regular small sips of fluid over the course of the next few days. Please follow-up with her primary care doctor and urologist soon as possible. If it anytime she develops any new or worsening symptoms please not hesitate to return. Forms: PCP List
[2023-06-22 11:48] VITALS: O2SAT 96
--- NOTE | 2023-06-22 23:29 | ED Physician Documentation ---
ED Addendum - Addendum Addendum: 06/22/23 23:27 Blood culture came back prelim positive GPC pairs. On chart review, patient has pyelonephritis with 1 kidney and bacteremia therefore will benefit from admission to hospital with urology and nephrology subspecialty services. Advised staff nurse to contact patient for presentation to an ED with these appropriate services, for example [facility].
--- NOTE | 2023-06-25 15:32 | ED Physician Documentation ---
ED Addendum - Addendum Addendum: 06/25/23 15:31 Additional sensitivities have resulted regarding blood cultures. I spoke with patient's father who states that she has been admitted at [facility] in [place]. I spoke with the nurse taking care of the patient named Terry and she is under the care of Dr. Post. The unit fax number is [phone]. I informed Terry that we would send over our culture and sensitivity results.
== END 2023-06-22 12:03 | disposition home or self-care (01) ==
LOC: ED 02:47
DX: N12 Tubulo-interstitial nephritis, not specified as acute or chronic (principal); N18.9 Chronic kidney disease, unspecified; R78.81 Bacteremia; Q60.0 Renal agenesis, unilateral
CPT/HCPCS: 36415; 74176; 80053; 81001; 81025; 83605; 83690; 85025; 87040; 87077; 87150; 87181; 87633; 96365; 96367; 96375; 99284; A9270; J0131; J2765; 81003; 85651; 87086

== ENCOUNTER 2024-01-28 10:16 | Emergency (ER) | payer MEDICARE, MEDICAID ==
[2024-01-28 10:51] LABS: BILIRUBIN,URINE NEGATIVE (NEGATIVE); GLUCOSE, URINE (UA) NEGATIVE (NEGATIVE); KETONES,URINE (UA) NEGATIVE (NEGATIVE); LEUKOCYTE ESTERASE, URINE NEGATIVE (NEGATIVE); NITRITE,URINE NEGATIVE (NEGATIVE); OCCULT BLOOD,URINE NEGATIVE (NEGATIVE); PROTEIN,URINE 30 mg/dL (NEGATIVE); UROBILINOGEN,URINE 0.2 (NORMAL) E.U./dL (NORMAL)
[2024-01-28 10:53] LABS: CLARITY,URINE CLEAR (CLEAR); HCG UR QUAL NEGATIVE
--- NOTE | 2024-01-28 11:10 | ED Physician Documentation ---
History of Present Illness - Stated complaint Stated Complaint: BACK PX, GI PX - Chief complaint Chief Complaint: UTI - History obtained from History obtained from: Patient, Family (Mother provided majority of history as patient has history of mental delay) - History of Present Illness Timing: Prior to arrival - Additonal information Additional information: Patient is a 28-year-old female presenting to the emergency department with back pain foul-smelling urine and incontinence. Patient brought in by mother who noted symptoms started yesterday and then this morning patient was reporting lower back pain. Patient has history of nephrectomy on right side of her abdomen. She follows with urology in [facility] and her and her mother are visiting here for short period of time. Patient is incontinent at baseline. 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: Other - Present Medications Home Medications: Ambulatory Orders Medication Instructions Recorded Confirmed Polyethylene Glycol 3350 [Miralax] 4 tsp PO DAILY 10/14/17 01/28/24 allopurinoL [Allopurinol] 1.5 tab PO DAILY 10/27/18 01/28/24 Lactulose [Enulose] 1 applic PO DAILY 01/28/24 01/28/24 - Allergies Allergies/Adverse Reactions: Allergies Allergy/AdvReac Type Severity Reaction Status Date / Time ciprofloxacin Allergy Hives Verified 01/28/24 10:27 Sulfa (Sulfonamide AdvReac Unknown Verified 01/28/24 10:27 Antibiotics) - Social History Does the pt smoke?: No Smoking Status: Never smoker Does the pt drink ETOH?: No Does the pt have substance abuse?: No - Immunizations Immunizations are current?: No Immunizations: Other immun not current - POLST Patient has POLST: No PD ED PE NORMAL - Vitals Vital signs reviewed: Yes - General General: Alert and oriented X 3 - HEENT HEENT: Atraumatic, PERRL - Neck Neck: Supple, no meningeal sign - Cardiac Cardiac: RRR, No murmur, No gallop, No rub - Respiratory Respiratory: No respiratory distress, Clear bilaterally - Abdomen Abdomen: Normal bowel sounds, Non tender, Non distended - Female Female : Deferred - Back Back: Other (no specific CVA tenderness) - Extremities Extremities: No deformity, No tenderness to palpate - Neuro Neuro: Alert and oriented X 3 Eye Opening: Spontaneous Motor: Obeys Commands Verbal: Oriented GCS Score: 15 Results - Vitals Vitals: Vital Signs - 24 hr 01/28/24 10:27 Temperature 36.9 C Heart Rate 69 Respiratory 16 Rate Blood Pressure 115/78 O2 Saturation 100 Oxygen O2 Source Room air - EKG (time done) 1234 EKG releavant findings:: EKG personally interpreted by author of this note. Relevant findings are: Rate: Rate (enter#) [place]: Normal Intervals: Normal NV QRS: Normal Ischemia: Normal ST segments, Other (No peaked T waves appreciated) Computer interpretation: Agree with computer - Labs Labs: Laboratory Tests 01/28/24 01/28/24 01/28/24 10:45 11:42 11:42 WBC 1.8 L* RBC 3.70 L Hgb 12.6 Hct 38.6 MCV 104.3 H MCH 34.1 H MCHC 32.6 RDW 13.5 Plt Count 129 L MPV 10.4 Neut # (Auto) 1.0 L Lymph # (Auto) 0.6 L [place] # (Auto) 0.2 Eos # (Auto) 0.0 Baso # (Auto) 0.0 Absolute Nucleated RBC 0.00 Nucleated RBC % 0.0 Manual Slide Review Indicated RBC Morph Micro Appear 2+ ANISOCYTOSIS Sodium 135 Potassium 5.4 H Chloride 102 Carbon Dioxide 27 Anion Gap 6.0 BUN 59 H Creatinine 2.4 H Estimated GFR (MDRD) 24 L Glucose 81 Calcium 9.8 Total Bilirubin 0.6 AST 12 ALT 9 L Alkaline Phosphatase 42 Total Protein 7.0 Albumin 4.1 Globulin 2.9 Albumin/Globulin Ratio 1.4 Urine Color LT. YELLOW Urine Clarity CLEAR Urine pH 6.0 Ur Specific Jean 1.020 Urine Protein 30 H Urine Glucose (UA) NEGATIVE Urine Ketones NEGATIVE Urine Occult Blood NEGATIVE Urine Nitrite NEGATIVE Urine Bilirubin NEGATIVE Urine Urobilinogen 0.2 (NORMAL) Ur Leukocyte Esterase NEGATIVE Urine RBC 0-5 Urine WBC 0-3 Ur Squamous Epith Cells MOD Squamous H Urine Bacteria Rare Ur Microscopic Review INDICATED Urine Culture Comments NOT INDICATED Urine HCG, Qual NEGATIVE PD Medical Decision Making - ED course Complexity details: reviewed old records, reviewed results, re-evaluated patient ED course: Patient is a 28-year-old female presenting to the emergency department with mother who is her guardian patient has history of mental delay and is under the care of her mother. She has history of nephrectomy back in March. Mother notes that she has history of stage IV CKD and is monitored by urology in [place]. Mother and daughter are visiting from [place] with family. Mother notes patient is experiencing symptoms of UTI with foul-smelling urine and leaking which is abnormal for patient she does wear depends at baseline and is occasionally incontinent but this has increased over the last few hours. Patient denies any fevers but did report some lower back pain to her mother this morning. She discussed with urology office and they instructed her to come to the emergency department. Vitals on arrival are reassuring patient is afebrile nontachycardic and normotensive. Normal cardiac and lung sounds, Mild right CVA tenderness, but no left CVA tenderness and hx of nephrectomy is on right side. Abdomen is soft, no rebound or guarding. Urine analysis obtained in triage does not show signs of UTI there is some protein but no other acute findings reviewed results with mother from [facility] patient's baseline creatinine is 2.58 with GFR of 25 last UTI grew Enterococcus that was sensitive to penicillins and was in October. Discussed with mother will repeat basic labs just to ensure no acute findings. Labs obtained here in the emergency department show baseline creatinine at 2.4 GFR of 24 patient noted bleeding hyperkalemic EKG obtained showing no peaked T waves. Given hyperkalemia encouraged fluid intake here in emergency department and gave dose of IV fluids. Patient noted debility leukopenic this is baseline for patient reviewed mother's recent labs shows persistent leukopenia patient today is 1.8 not significantly different from previous labs around 1.9. Reevaluated patient after this she notes her back pain resolved she is feeling significantly better. Discussed with mother pushing fluids at home and following up with urology in the outpatient setting given reassuring workup and labs. Follow-up with neurology in [place] on return given reassuring labs and workup. Mother was sent with labs obtained here results so she could get them to the urologist in [place]. She is agreeable with this plan will return with any abdominal pain fevers chills decreased appetite or any other new or worsening symptoms. Departure - Departure Disposition: 01 Home, Self Care Clinical Impression: Hyperkalemia, Leaking of urine Condition: Good Instructions: Hyperkalemia Dc Comments: Your daughter was seen here in the emergency department for leaking of urine and foul-smelling urine she is noted to have some elevation in her electrolytes we treated those with oral medication and IV fluids she did not have a UTI and her labs appeared at baseline otherwise. Follow-up with the urologist in [place] within the week for recheck of electrolytes return with any abdominal pain fevers back pain or any other new or worsening symptosm.
[2024-01-28 11:11] LABS: RBC,URINE 0-5 /HPF (0-5); WBC,URINE 0-3 /HPF (0-5)
[2024-01-28 11:12] LABS: BACTERIA,URINE Rare /HPF (None Seen); SQUAMOUS EPITHELIAL CELL,UR MOD Squamous (<= Few)
[2024-01-28 11:49] LABS: BASOPHILS % (AUTO) 1.1 %; EOSINOPHILS % (AUTO) 1.1 %; HCT - HEMATOCRIT 38.6 % (37.0-47.0); HGB - HEMOGLOBIN 12.6 g/dL (12.0-16.0); LYMPHOCYTES # (AUTO) 0.6 10^3/uL (1.5-3.5); LYMPHOCYTES % (AUTO) 33.9 %; MEAN CORPUSCULAR HEMOGLOBIN 34.1 pg (27.0-31.0); MEAN CORPUSCULAR HGB CONC 32.6 g/dL (32.0-36.0); MEAN CORPUSCULAR VOLUME 104.3 fL (81.0-99.0); MEAN PLATELET VOLUME 10.4 fL (7.9-10.8); MONOCYTES # (AUTO) 0.2 10^3/uL (0.0-1.0); MONOCYTES % (AUTO) 10.6 %; NEUTROPHILS % (AUTO) 53.3 %; PLT - PLATELET COUNT 129 10^3/uL (130-450); RED CELL DISTRIBUTION WIDTH 13.5 % (12.0-15.0)
[2024-01-28 11:52] LABS: SLIDE REVIEW? Indicated; WHITE BLOOD COUNT 1.8 x10^3/uL (4.8-10.8)
[2024-01-28 12:00] LABS: ALBUMIN 4.1 g/dL (3.2-5.5); ALBUMIN/GLOBULIN RATIO 1.4 (1.0-2.2); BILIRUBIN,TOTAL 0.6 mg/dL (0.2-1.0); CALCIUM 9.8 mg/dL (8.5-10.3); CREATININE 2.4 mg/dL (0.6-1.3); POTASSIUM 5.4 mmol/L (3.5-4.5)
[2024-01-28 12:09] LABS: RBC MORPHOLOGY (MULTIPLE) 2+ ANISOCYTOSIS (NORMAL)
[2024-01-28] MEDS: SODIUM CHLORIDE 0.9% 1,000 ML IV STA (13:06)
[2024-01-28] MEDS: SODIUM ZIRCONIUM CYCLOSILICATE 5 GM PACKET PO ONE (14:20)
[2024-01-28 15:07] VITALS: BP 103/78; O2SAT 98
== END 2024-01-28 14:55 | disposition home or self-care (01) ==
LOC: ED 10:16
DX: E87.5 Hyperkalemia (principal); R32 Unspecified urinary incontinence
CPT/HCPCS: 36415; 80053; 81001; 81003; 81025; 85025; 87086; 93005; 96360; 99283